=== PATIENT | female | born 1945 | race Caucasian/White ===

== ENCOUNTER 2022-04-23 11:58 | Outpatient (REF) | payer MEDICARE, SELFPAY | END 2022-04-23 11:59 | disposition home or self-care (01) | LOC: HO.SH 11:58 | PROVIDERS: PCP Physician Assistant; Visit Provider Physician Assistant | DX: Z01.118 Encounter for examination of ears and hearing with other abnormal findings (principal); H90.3 Sensorineural hearing loss, bilateral | CPT/HCPCS: 92557; 92567 ==